=== PATIENT | female | born 1950 | race Caucasian/White ===

== ENCOUNTER 2016-10-25 07:30 | Inpatient (IN) | payer BC ==
--- NOTE | ~2016-10-25 | OR ---
PATIENT'S NAME: BALTAZAR GROVE [facility] AGE: 66 Y [address] ROOM: [place] [address] LOCATION: GICU ADMIT DATE: 10/25/2016 OR/Procedure Report DISCHARGE DATE: 10/25/2016 FAMILY PHYSICIAN: Physician, Unknown ATTENDING PHYSICIAN: Maggi Mayer SURGEON: Maggi Mayer MD PATHOLOGY SECRETARY: DATE OF PROCEDURE: 10/25/2016 ANESTHESIOLOGIST: Pola Healy MD. ANESTHESIA: General. COMPLICATIONS: None. ESTIMATED BLOOD LOSS: Minimal. PREOPERATIVE DIAGNOSES: 1. Massive spontaneous subarachnoid hemorrhage. 2. Intraventricular hemorrhage. 3. Obstructive hydrocephalus. 4. Ruptured anterior communicating artery aneurysm. POSTOPERATIVE DIAGNOSES: 1. Massive spontaneous subarachnoid hemorrhage. 2. Intraventricular hemorrhage. 3. Obstructive hydrocephalus. 4. Ruptured anterior communicating artery aneurysm. PROCEDURES PERFORMED: 1. Insertion of left frontal ventriculostomy tube for obstructive hydrocephalus. 2. Attempt insertion of right frontal ventriculostomy tube for hydrocephalus. INDICATIONS: The patient is a 66-year-old female patient, who was found unresponsive today. Her investigations revealed massive subarachnoid hemorrhage, intraventricular hemorrhage, and obstructive hydrocephalus. Her CT angiogram showed evidence of a ruptured anterior communicating artery aneurysm. The patient had a GCS of 3 for which she was intubated. She was stabilized at her local hospital and then transferred over. In the emergency, noncontrast CT head was repeated and that showed increase in the size of ventricles as well as increase in the amount of intraventricular hemorrhage. I recommended the above mentioned surgery to treat obstructive hydrocephalus and stabilize the patient prior to transfer to higher level PATIENT'S NAME: BALTAZAR GROVE [facility] AGE: 66 Y [address] ROOM: [place] [id number] LOCATION: GICU ADMIT DATE: 10/25/2016 OR/Procedure Report DISCHARGE DATE: 10/25/2016 FAMILY PHYSICIAN: Physician, Unknown ATTENDING PHYSICIAN: Maggi Mayer [facility] for definitive treatment of ruptured anterior communicating artery aneurysm. Emergency consent was signed and the patient was taken to surgery. DESCRIPTION OF PROCEDURE: The patient was brought from the emergency to the operating theater where she was given general anesthetic. Preoperative antibiotics were given. Calf compressors and Arambula catheter were used throughout the procedure. The patient was positioned supine on the table and all her joints and bony prominences were securely padded. The hair overlying the frontoparietal scalp was clipped off. Then, 2 paramedian incisions were marked along the midpupillary line. The surgical site was prepped and draped as per usual. The proposed skin incisions were infiltrated with 0.25% Marcaine with epinephrine. Skin was sharply opened down to the bone then high-speed Midas Caio drill was brought in and 2 kacie holes were fashioned, one on the right side, and one on the left side. The bone was waxed. The dura was coagulated and incised. I started by inserting the right frontal ventriculostomy tube. A Medtronic ventricular catheter was tried initially. The catheter was inserted based on the standard anatomical landmarks to a depth of 5 cm and no drainage of CSF. Then, the catheter was pulled out and the 2 other attempts were performed. No CSF was obtained. Then, I tried the larger catheter (Codman trauma catheter). That catheter was inserted to a depth of 6 cm from the inner table, and again, no definitive CSF showed out. Given that, I aborted inserting the right frontal ventriculostomy catheter. Then, I proceeded to try to insert a left frontal ventriculostomy catheter. Again, I tried the Medtronic ventricular catheter. Two attempts were done and no CSF obtained. Then, I used the Codman trauma catheter and that was inserted to a depth of 6 cm. Immediately, blood-tinged CSF escaped under moderate to high pressure. I was satisfied with that catheter insertion. The catheter was tunneled, secured to the skin with 3-0 Prolene. The catheter was capped and tied off with 2-0 silk. CSF continued to drip. I was satisfied with the left frontal catheter insertion, and I decided to abort inserting right frontal ventriculostomy catheter given the significant amount of intraventricular blood and potentially occlusion of the catheter bores. Then, I proceeded to hemostasis and closure. The wound was irrigated with bacitracin-containing irrigation. Gelfoam was placed in the kacie holes. The wounds were then closed in layers with 2-0 Vicryl to the galea and oscar for the skin. Sterile dressing was applied. The left frontal ventriculostomy catheter was connected to the drainage system and bloody CSF continued to drip. PATIENT'S NAME: BALTAZAR GROVE [facility] AGE: 66 Y [address] ROOM: [place] [address] LOCATION: [facility] ADMIT DATE: 10/25/2016 OR/Procedure Report DISCHARGE DATE: 10/25/2016 FAMILY PHYSICIAN: Physician, Unknown ATTENDING PHYSICIAN: Maggi Mayer At the end of the operation, the instrument and sponge counts were correct. The patient tolerated the operation without any complications. This case was substantially difficult and took more time to complete given the significant amount of intraventricular hemorrhage. Attempt insertion of right frontal ventriculostomy catheter has failed despite multiple attempts. MD LAURA JUAN/modl /[id number] CC: Eliceo Heath MD d: 10/25/16 1406 t: 10/25/16 1531, OPERATIVE SUMMARY
--- NOTE | ~2016-10-25 | OR ---
PATIENT'S NAME: [facility]H [facility] AGE: 66 Y [address] ROOM: [address] [address] LOCATION: GICU ADMIT DATE: 10/25/2016 OR/Procedure Report DISCHARGE DATE: 10/25/2016 FAMILY PHYSICIAN: Physician, Unknown ATTENDING PHYSICIAN: Maggi Mayer SURGEON: Pola Ca MD TOOL WORKER: DATE OF PROCEDURE: 10/25/2016 PROCEDURE PERFORMED: The following lines were placed during the patient's bilateral ventriculostomy placement. INDICATIONS: Anh is a 66-year-old white female with a history of peripheral vascular disease, who was found down and unresponsive at a [facility] bathroom in [place] earlier today, she was flighted here and underwent CT angiogram which revealed an anterior communicating artery aneurysm. That had evidently ruptured and filled both ventricles with blood. At the time of arrival, she was pretty much unresponsive, intubated. She does have a latex allergy. She was taken emergently from the CT scan to OR #9. She was already out so basically muscle relaxant was given, bed was turned 90 degrees, she was left on the cart and underwent bilateral ventriculostomy placements, lines were placed post procedurally for the purposes of safe transport and blood gas sampling. DESCRIPTION OF PROCEDURE: PROCEDURE #1: The patient was placed in Trendelenburg position. The path of the left subclavian was cleaned using chlorhexidine. Maximal barrier was placed. I gloved and gowned after washing hands. Placed a maximal barrier and then at the junction of middle and distal thirds of the clavicle inserted an 18-gauge needle, advanced towards the sternal notch. On the 2nd pass, obtained dark venous blood. No evidence arterial blood or air were countered. The wire threaded without difficulty. Brief ectopy indicating intracardiac placement. A dilator was passed and a 20-cm 8.5 Persian quad lumen line was placed and sutured in place with 2-0 silk at 18 cm. Chest x-ray is pending at the time of this dictation. At that point, the patient's left arm was extended, dorsiflexed the wrist, the right arm was ruled out because of the extensive scar over the radial artery area. Pulse was palpated and a 20-gauge art line kit was used to cannulate the artery. Wire threaded without difficulty. Three attempts were required. The pulse was noted to be 20 below the cuff on transduction. We later found out that she has a left subclavian stenosis, so this will be used for sampling of blood gas only and trending. Thank you very much for allowing me to participate in this gentleman's care. If you have any questions regarding these lines, please do not hesitate to PATIENT'S NAME: ANH [facility] AGE: 66 Y [address] ROOM: [address] [place] [id number] LOCATION: GICU ADMIT DATE: 10/25/2016 OR/Procedure Report DISCHARGE DATE: 10/25/2016 FAMILY PHYSICIAN: Physician, Unknown ATTENDING PHYSICIAN: Maggi Mayer call. POLA L MD ANDREEA CA/andi /[id number] d: 10/25/16 1227 t: 10/28/16 1553, OPERATIVE SUMMARY
--- NOTE | ~2016-10-25 | HP ---
PATIENT'S NAME: BALTAZAR GROVE [facility] AGE: 66 Y [address] ROOM: [place] [address] LOCATION: GICU ADMIT DATE: 10/25/2016 History & Physical DISCHARGE DATE: 10/25/2016 FAMILY PHYSICIAN: Physician, Unknown ATTENDING PHYSICIAN: Maggi Mayer DATE OF SERVICE: 10/25/2016 CHIEF COMPLAINT: Massive spontaneous subarachnoid hemorrhage, intraventricular hemorrhage, and obstructive hydrocephalus. 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 HISTORY OF PRESENT ILLNESS: The patient is a 66-year-old female patient, who was transferred from [facility] to our hospital after a noncontrast CT head showed evidence of massive spontaneous subarachnoid hemorrhage, intraventricular hemorrhage, and obstructive hydrocephalus. Apparently from the notes, the patient was found unresponsive in the bathroom at [facility]. She had a GCS of 3. She was taken to [facility] where she was stabilized and intubated. A noncontrast CT head was obtained and showed the above findings. I was contacted and reviewed the imaging. I recommended controlling the blood pressure and transferring the patient over for further investigations and stabilization. I met the patient in the emergency. She was intubated, ventilated, and sedated. Further history was limited. From the notes, it appears that this patient has been complaining of headaches in June and was seen by a neurologist, Dr. Ureña. A spinal tap was performed and that showed evidence of xanthochromia. MRI was done and that showed gliosis. The patient was diagnosed with some form of MANAGER ELIGIBILITY viral infection. PAST MEDICAL AND SURGICAL HISTORY: Unobtainable given the patient's level of consciousness and intubation. MEDICATIONS: Unobtainable given the patient's intubation. ALLERGIES: UNKNOWN. FAMILY HISTORY: Unobtainable given the patient's level of consciousness and intubation. SOCIAL HISTORY: PATIENT'S NAME: BALTAZAR GROVE [facility] AGE: 66 Y [address] ROOM: [place] [address] LOCATION: GICU ADMIT DATE: 10/25/2016 History & Physical DISCHARGE DATE: 10/25/2016 FAMILY PHYSICIAN: Physician, Unknown ATTENDING PHYSICIAN: Maggi Mayer Unobtainable given the patient's level of consciousness and intubation. PHYSICAL EXAMINATION: GENERAL: The patient is intubated and ventilated. HEENT: Head examination, atraumatic. The pupils are 2 mm and reactive. NEUROLOGIC: It is limited due to sedation and paralysis. She has no motor response to painful stimulation. RESPIRATORY: She is intubated and ventilated. CHEST: No signs of trauma. She is intubated. INVESTIGATIONS: 1. Noncontrast CT head done in [place] which I personally reviewed. It showed evidence of massive spontaneous subarachnoid hemorrhage associated with a very large intraventricular hemorrhage involving the lateral ventricles, 3rd, and 4th ventricles. The blood distribution in the subarachnoid spaces is very highly suspicious for subarachnoid hemorrhage due to ruptured anterior communicating artery aneurysm. The scan also showed evidence of obstructive hydrocephalus. 2. Repeat noncontrast CT head and CT angiogram done at our hospital. It showed increase in the size of the ventricles as well as increase in the size of intraventricular hemorrhage suspicious for aneurysm rebleeding. CT angiogram revealed evidence of a small anterior communicating artery aneurysm with suspicious evidence of intra-aneurysmal thrombus. It also showed occlusion of the left internal carotid artery from its origin up to the skull base. It also showed stenosis of the left subclavian artery origin. IMPRESSION AND PLAN: A 66-year-old female patient, who was found unresponsive today, had brain imaging done and that showed evidence of massive subarachnoid hemorrhage, intraventricular hemorrhage, obstructive hydrocephalus, and ruptured anterior communicating artery aneurysm. The patient had a low GCS for which she was intubated. Her repeat imaging showed increase in the size of the ventricles and the intraventricular hemorrhage. Plan: 1. Stat insertion of bilateral frontal ventriculostomy tubes to relieve obstructive hydrocephalus. The family were unavailable at the time of the encounter, so an emergency consent was signed, and the patient was taken to the operating room. With regard to the anterior communicating artery aneurysm, we will stabilize the patient here, insert the frontal ventriculostomy tubes, and then transfer the patient to [facility] for definitive management of ruptured intracranial aneurysm. It was pleasure taking care of this patient and thanks for having us involved. PATIENT'S NAME: BALTAZAR GROVE [facility] AGE: 66 Y [address] ROOM: [address] [address] LOCATION: [facility] ADMIT DATE: 10/25/2016 History & Physical DISCHARGE DATE: 10/25/2016 FAMILY PHYSICIAN: PhysicianRichard ATTENDING PHYSICIAN: Maggi Mayer MD LAURA JUAN/williamsl /[id number] D: [id number] T: [id number] HISTORY & PHYSICAL
--- NOTE | ~2016-10-25 | DS ---
PATIENT'S NAME: BALTAZAR GROVE [facility] AGE: 66 Y [address] ROOM: [address] [address] LOCATION: GICU ADMIT DATE: 10/25/2016 Discharge Summary DISCHARGE DATE: 10/25/2016 FAMILY PHYSICIAN: Physician, Unknown ATTENDING PHYSICIAN: Maggi Mayer ADMISSION MAIN DIAGNOSES: 1. Spontaneous massive subarachnoid hemorrhage due to ruptured anterior communicating artery aneurysm. 2. Large bilateral intraventricular hemorrhage with obstructive hydrocephalus. 3. Occlusion of the left internal carotid artery and stenosis of left subclavian artery origin. DISCHARGE MAIN DIAGNOSES: 1. Spontaneous massive subarachnoid hemorrhage due to ruptured anterior communicating artery aneurysm. 2. Large bilateral intraventricular hemorrhage with obstructive hydrocephalus. 3. Occlusion of the left internal carotid artery and stenosis of left subclavian artery origin. PROCEDURES DURING ADMISSION: 1. Insertion of left frontal ventriculostomy catheter for obstructive hydrocephalus. 2. Attempt insertion of right frontal ventriculostomy catheter for obstructive hydrocephalus and intraventricular hemorrhage. COMPLICATIONS DURING ADMISSION: None. DISCHARGE INSTRUCTIONS: The patient will be transferred urgently to the [facility] under care of Dr. Martinez for definitive treatment of ruptured anterior communicating artery aneurysm. MEDICATIONS: Listed in the patient's chart. HOSPITAL COURSE: The patient is a 66-year-old female who was transferred from [facility] to our hospital after she was diagnosed with massive spontaneous subarachnoid hemorrhage, intraventricular hemorrhage, and obstructive hydrocephalus. The patient had CT angiogram done at our hospital and that showed evidence of ruptured anterior communicating artery aneurysm. The patient was taken urgently to the operating room and the above-mentioned surgeries were done. Postoperatively, an arterial line and central line were inserted by Anesthesia. I contacted Dr. Martinez at the [facility], who kindly reviewed the images. He recommended transferring PATIENT'S NAME: BALTAZAR GROVE [facility] AGE: 66 Y [address] ROOM: [address] [address] LOCATION: [facility] ADMIT DATE: 10/25/2016 Discharge Summary DISCHARGE DATE: 10/25/2016 FAMILY PHYSICIAN: Physician, Unknown ATTENDING PHYSICIAN: Maggi Mayer the patient over for further investigations and definitive treatment of the aneurysm. Given that, arrangements were made to transfer the patient by air ambulance to the [facility] directly from the operating room. I also spoke to the family and explained the treatment protocol. MD LAURA JUAN/modl /[id number] CC: MD Hermes Abdi MD [facility] d: 10/26/16 0218 t: 10/26/16 1335, DISCHARGE SUMMARY
== END 2016-10-25 11:25 | disposition hospice, home (50) | DRG 24 ==
LOC: GICU 07:30
PROVIDERS: ADMIT Neurological Surgery
PROC: 001 Central Nervous System and Cranial Nerves, Bypass (ICD-10-PCS; principal; 2016-10-25)
PROC: 03HC33Z Insertion of Infusion Device into Left Radial Artery, Percutaneous Approach (ICD-10-PCS; principal; 2016-10-25)
DX: I60.2 Nontraumatic subarachnoid hemorrhage from anterior communicating artery (principal); I65.22 Occlusion and stenosis of left carotid artery; G91.1 Obstructive hydrocephalus; I61.5 Nontraumatic intracerebral hemorrhage, intraventricular
CPT/HCPCS: J0360; J0690; J1170; J2405

== ENCOUNTER → 2016-10-25 | Outpatient (CLI) | payer BC | END | disposition disaster alternative care site (69) | LOC: GAIR 11:34 | DX: I63.9 Cerebral infarction, unspecified (principal); S06.360A Traumatic hemorrhage of cerebrum, unspecified, without loss of consciousness, initial encounter; I67.1 Cerebral aneurysm, nonruptured; X58.XXXA Exposure to other specified factors, initial encounter | CPT/HCPCS: A0422; A0431; A0436; J3010 ==

== ENCOUNTER → 2016-10-25 | Outpatient (CLI) | payer BC | END | disposition disaster alternative care site (69) | LOC: GAIR 07:14 | DX: I61.9 Nontraumatic intracerebral hemorrhage, unspecified (principal); R41.82 Altered mental status, unspecified; X58.XXXA Exposure to other specified factors, initial encounter | CPT/HCPCS: A0422; A0431; A0436; J2405; J3010 ==